=== PATIENT | male | born 1995 | race Caucasian/White ===

== ENCOUNTER 2023-02-15 13:49 | Emergency (ER) | payer OTHER ==
[~2023-02-15] VITALS: Ht 170.2 cm; Wt 100.2 kg
[2023-02-15] MEDS ORDERED: LISI20TA33 PO (13:57)
[2023-02-15] MEDS ORDERED: METH-1165 PO (16:44)
[2023-02-15] MEDS ORDERED: NAPR-837 PO (16:44)
[2023-02-15] MEDS ORDERED: ASPE4PAD TOP (16:44)
[2023-02-15] MEDS ORDERED: KETOROLAC 60MG 2ML VIAL IM ONE (16:45)
[2023-02-15] MEDS ORDERED: LIDOCAINE 5% (LIDODERM) PATCH TD ONE (16:45)
[2023-02-15] MEDS ORDERED: diazePAM 5MG TABLET PO ONE (16:45)
[2023-02-15 17:10] VITALS: BP 142/86
== END 2023-02-15 17:16 | disposition home or self-care (01) ==
LOC: M ED 13:49
DX: S39.92XA Unspecified injury of lower back, initial encounter (principal); X58.XXXA Exposure to other specified factors, initial encounter; Y93.89 Activity, other specified; Y99.1 Military activity; I10 Essential (primary) hypertension
CPT/HCPCS: 96372; 99283; J1885